=== PATIENT | male | born 1980 | race Caucasian/White ===

== ENCOUNTER 2017-02-24 13:05 | Emergency (ER) | payer OTHER ==
[~2017-02-24] VITALS: Ht 180.3 cm; Wt 109.0 kg
[2017-02-24 14:45] LABS: HEMATOCRIT 45.7 % (38.0-50.0); MCH 27.2 PG (29.0-34.0); MCHC 32.4 G/DL (30.0-36.0); MCV 83.9 FL (86-99); RBC DIS.WIDTH-CV 13.4 % (11.8-14.6); RBC DIS.WIDTH-SD 40.9 % (39-53); RED BLOOD COUNT 5.45 M/uL (4.00-5.50); WHITE BLOOD COUNT 20.9 K/uL (4.1-10.2)
[2017-02-24 14:55] LABS: MEAN PLAT.VOLUME 12.4 uM^3 (9.0-12.4); PLATELET COUNT 203 K/uL (156-360)
[2017-02-24 14:56] LABS: CHLORIDE 106 mEq/L (99-109); POTASSIUM 3.9 mEq/L (3.7-5.4); SODIUM 139 mEq/L (136-147)
[2017-02-24 14:58] LABS: GLUCOSE 121 mg/dL (70-99)
[2017-02-24 15:00] LABS: ANION GAP 11 MEQ/L (2-14)
[2017-02-24 15:02] LABS: GFR ESTIMATE (CALCULATED) > 59 mL/min/
[2017-02-24 15:03] LABS: UREA NITROGEN (BUN) 9 mg/dL (9-23)
[2017-02-24 15:10] LABS: TROP-I INTERPRETATION NEGATIVE; TROPONIN-I < 0.01 ng/mL (0.0-0.30)
[2017-02-24 18:21] LABS: TROP-I INTERPRETATION NEGATIVE; TROPONIN-I < 0.01 ng/mL (0.0-0.30)
[2017-02-24] MEDS ORDERED: ATARAX,VISTARIL50 MG PO (19:06)
[2017-02-24 19:22] VITALS: BP 147/75
== END 2017-02-24 19:24 | disposition home or self-care (01) ==
LOC: EME 13:05
PROVIDERS: Physician Assistant
DX: R07.9 Chest pain, unspecified (principal); F41.9 Anxiety disorder, unspecified; F17.200 Nicotine dependence, unspecified, uncomplicated
CPT/HCPCS: 71020; 80048; 84484; 85027; 99281; 99284